=== PATIENT | male | born 1990 | race Caucasian/White ===

== ENCOUNTER 2019-02-17 07:34 | Emergency (ER) | payer BC ==
[~2019-02-17] VITALS: Ht 175.3 cm; Wt 73.6 kg
[2019-02-17 07:39] VITALS: BP 131/77; PULSE 68; RESP 18; Ht 175.3 cm; Wt 73.6 kg
[2019-02-17] MEDS ORDERED: IBUP-1542 PO (09:05)
--- NOTE | 2019-02-17 09:20 | ERD ---
ER Documentation Chief Complaint Chief Complaint left calf pain/cramp x this am HPI 29-year-old male patient with no significant past medical history presents to ED complaining of left calf pain that started this morning. States that he has been less mobile. Denies any recent traveling. Reports that he is concerned due to taking for levofloxacin in October 2018 for prostatitis. States that he is concerned for tendon pain. Describes the pain as a sharp to shooting sensation, reports that it feels like a pulled muscle. Patient currently rates his pain a 7 out of 10. Denies any nausea, vomiting, diarrhea, neck stiffness. Denies any fever, chills, chest pain, shortness of breath, cough, hemoptysis, dyspnea on exertion. ROS All systems reviewed and are negative except as per history of present illness. Medications Home Meds Active Scripts Ibuprofen* (Motrin*) 600 Mg Tab, 600 MG PO Q6, #30 TAB Prov:ESDRAS ADAMSON PA-C 02/17/19 PMhx/Soc Medical and Surgical Hx: pt denies Medical Hx, pt denies Surgical Hx Hx Alcohol Use: No Hx Substance Use: No Hx Tobacco Use: No Smoking Status: Former smoker FmHx Family History: No diabetes, No coronary disease Physical Exam Vitals Vital Signs Date Temp Pulse Resp B/P (MAP) Pulse Ox O2 O2 Flow FiO2 Time Delivery Rate 02/17/19 97.5 68 18 131/77 100 07:39 (95) Physical Exam Const: [id number]-[id number], well-nourished. In no acute distress. Head: Atraumatic, normocephalic Eyes: Normal Conjunctiva without injection ENT: Normal external ear, nose and mouth. Neck: Full range of motion. No meningismus. Resp: Clear to auscultation bilaterally. No wheezing, rhonchi, rales, or crackles. No accessory muscle use. No retractions. Cardio: Regular rate and rhythm, no murmurs Skin: No petechiae or rashes Back: No midline tenderness. No CVA tenderness. Ext: No cyanosis, or edema. Cap refill less than 2 seconds. Distal pulses intact bilaterally. Tender to palpation of the left calf muscles. Achilles tendon intact. Full range of motion with flexion, extension of bilateral knees as well as plantar flexion and dorsiflexion. Neur: Awake and alert. Normal gait and coordination. Muscle strength 5/5. Sensation intact bilaterally. Psych: Normal Mood and Affect Procedures/MDM 29-year-old male patient with no significant past medical history presents to ED complaining of left calf pain. Patient is afebrile and nontoxic-appearing. Venous ultrasound of left lower extremity was ordered to further evaluate patient. Patient denied wanting any pain medications. IMPRESSION: No sonographic evidence for deep venous thrombosis. Patient is neurovascularly intact. No DVT noted. Differentials include tendonitis from fluoroquinolone use. Strictly instructed patient to try and not use fluoroquinolone antibiotics in the future. Physical therapy recommended. Offered magda wrap for patient, patient denied. Patient ambulating without difficulty - states that his pain has improved. Discussed risk of tendon rupture with fluoroquinolone use. Patient's extremity symptoms have stabilized while they have been evaluated in the department and are appropriate for outpatient follow up. No evidence of fractures, dislocations, compartment syndrome, neurologic injury, vascular injury, open joint, open fracture, tendon laceration, septic arthritis, osteomyelitis, DVT, foreign body, or other vera gent conditions. Diagnosis: Pain in Left Calf Discharge medications: Ibuprofen Follow up with primary care physician in 1-2 days. Instructed patient to return to the ED sooner for any worsening symptoms. Patient's questions were answered. Patient is hemodynamically stable. Patient understood and agreed with discharge plan. Patient discharged stable. Disclaimer: Inadvertent spelling and grammatical errors are likely due to EHR/dictation software use and do not reflect on the overall quality of patient care. Also, please note that the electronic time recorded on this note does not necessarily reflect the actual time of the patient encounter. Departure Diagnosis: Primary Impression: Pain of left calf Condition: Stable Patient Instructions: Tendonitis Referrals: [facility] YOU HAVE RECEIVED A MEDICAL SCREENING EXAM AND THE RESULTS INDICATE THAT YOU DO NOT HAVE A CONDITION THAT REQUIRES URGENT TREATMENT IN THE EMERGENCY DEPARTMENT. FURTHER EVALUATION AND TREATMENT OF YOUR CONDITION CAN WAIT UNTIL YOU ARE SEEN IN YOUR DOCTORS OFFICE WITHIN THE NEXT 1-2 DAYS. IT IS YOUR RESPONSIBILITY TO MAKE AN APPOINTMENT FOR FOLOW-UP CARE. IF YOU HAVE A PRIMARY DOCTOR --you should call your primary doctor and schedule an appointment IF YOU DO NOT HAVE A PRIMARY DOCTOR YOU CAN CALL OUR PHYSICIAN REFERRAL HOTLINE AT IF YOU CAN NOT AFFORD TO SEE A PHYSICIAN YOU CAN CHOSE FROM THE FOLLOWING [facility] [address] [place] [address] [facility] [address] [facility] [address] [facility] [address] [facility]. [facility]. [address] [facility]. [facility] YOU HAVE RECEIVED A MEDICAL SCREENING EXAM AND THE RESULTS INDICATE THAT YOU DO NOT HAVE A CONDITION THAT REQUIRES URGENT TREATMENT IN THE EMERGENCY DEPARTMENT. FURTHER EVALUATION AND TREATMENT OF YOUR CONDITION CAN WAIT UNTIL YOU ARE SEEN IN YOUR DOCTORS OFFICE WITHIN THE NEXT 1-2 DAYS. IT IS YOUR RESPONSIBILITY TO MAKE AN APPOINTMENT FOR FOLOW-UP CARE. IF YOU HAVE A PRIMARY DOCTOR --you should call your primary doctor and schedule and appointment IF YOU DO NOT HAVE A PRIMARY DOCTOR YOU CAN CALL OUR PHYSICIAN REFERRAL HOTLINE AT . IF YOU CAN NOT AFFORD TO SEE A PHYSICIAN YOU CAN CHOSE FROM THE FOLLOWING [facility] INSTITUTIONS: [facility] [address] [place] [address] [facility] [address] [place] [address] [facility] [address] [place] [address] [facility] Additional Instructions: Call your primary care doctor TOMORROW for an appointment during the next 2-3 days.See the doctor sooner or return here if your condition worsens before your appointment time. ESDRAS ADAMSON PA-C Feb 17, 2019 09:19
== END 2019-02-17 09:25 | disposition home or self-care (01) ==
LOC: FTE 07:34
DX: M79.605 Pain in left leg (principal); Z87.891 Personal history of nicotine dependence
CPT/HCPCS: 93971; 99282